=== PATIENT | male | born 1990 | race Asian ===

== ENCOUNTER → 2016-09-04 | Outpatient (CLI) | payer BC ==
[2016-09-04 13:18] LABS: ADD SCAN DIFF NO
[2016-09-04 13:23] LABS: BASOPHILS % 0.7 % (0.0-2.0); EOSINOPHILS # 0.1 10^3/ul (0.0-0.5); EOSINOPHILS % 2.3 % (0.0-7.0); HEMATOCRIT 42.9 % (42.0-52.0); HEMOGLOBIN 15.2 g/dl (14.0-18.0); LYMPHOCYTES # 1.7 10^3/ul (0.8-2.9); LYMPHOCYTES % 38.6 % (15.0-51.0); MEAN CORPUSCULAR HEMOGLOBIN 30.5 pg (29.0-33.0); MEAN CORPUSCULAR HGB CONC 35.4 g/dl (32.0-37.0); MEAN PLATELET VOLUME 11.8 fl (7.4-10.4); MONOCYTE # 0.3 10^3/ul (0.3-0.9); MONOCYTES % 7.9 % (0.0-11.0); NEUTROPHIL # 2.2 10^3/ul (1.6-7.5); NEUTROPHILS % 50.3 % (39.0-77.0); PLATELET COUNT 196 10^3/UL (140-415); RED BLOOD COUNT 4.99 10^6/ul (4.70-6.10); RED CELL DISTRIBUTION WIDTH 11.9 % (11.5-14.5); WHITE BLOOD COUNT 4.3 10^3/ul (4.8-10.8)
[2016-09-04 13:42] LABS: ADD UMIC YES; UR ASCORBIC ACID NEGATIVE (NEGATIVE); UR BILIRUBIN (Dip) 1+ mg/dL (NEGATIVE); UR BLOOD (Dip) NEGATIVE (NEGATIVE); UR CLARITY CLEAR (CLEAR); UR COLOR AMBER (YELLOW); UR GLUCOSE (Dip) NEGATIVE (NEGATIVE); UR KETONES (Dip) NEGATIVE (NEGATIVE); UR LEUKOCYTE ESTERASE (Dip) NEGATIVE Leu/ul (NEGATIVE); UR MUCUS MODERATE /HPF (NONE SEEN); UR NITRITE (Dip) NEGATIVE (NEGATIVE); UR RBC 0 /HPF (0-5); UR SPECIFIC GRAVITY (Dip) 1.027 (1.003-1.030); UR TOTAL PROTEIN (Dip) 1+ mg/dl (NEGATIVE); UR UROBILINOGEN (Dip) 2+ mg/dL (NEGATIVE)
[2016-09-04 13:46] LABS: ALBUMIN 4.8 g/dl (3.3-4.9); ALBUMIN/GLOBULIN RATIO 1.2; BILIRUBIN,INDIRECT 2.3 mg/dl (0-1.1); BILIRUBIN,TOTAL 2.3 mg/dl (0.2-1.3); CALCIUM 9.8 mg/dl (8.4-10.2); CHOL/HDL RATIO 2.6 RATIO; CREATININE 0.91 mg/dl (0.61-1.24); POTASSIUM 4.7 mmol/L (3.5-5.1); TOTAL PROTEIN 8.8 g/dl (6.1-8.1)
[2016-09-04 14:17] LABS: THYROID STIMULATING HORMONE 0.559 MIU/L (0.465-4.680)
[2016-09-04 18:55] LABS: HEPATITIS B CORE ANTIBODY NEGATIVE (NEGATIVE)
== END | disposition home or self-care (01) ==
LOC: LAB 12:57
PROVIDERS: ATTEND Internal Medicine
DX: M79.89 Other specified soft tissue disorders (principal)
CPT/HCPCS: 80053; 80061; 81001; 84443; 85025; 86704; 86803; 87340

== ENCOUNTER → 2016-11-28 | Outpatient (CLI) | payer BC ==
[2016-11-28 11:40] LABS: BASOPHIL # 0.1 10^3/ul (0.0-0.1); EOSINOPHILS # 0.2 10^3/ul (0.0-0.5); EOSINOPHILS % 4.3 % (0.0-7.0); HEMATOCRIT 43.3 % (42.0-52.0); LYMPHOCYTES # 1.6 10^3/ul (0.8-2.9); LYMPHOCYTES % 30.9 % (15.0-51.0); MEAN CORPUSCULAR HEMOGLOBIN 29.8 pg (29.0-33.0); MEAN CORPUSCULAR HGB CONC 34.6 g/dl (32.0-37.0); MEAN CORPUSCULAR VOLUME 86.1 fl (82.0-101.0); MEAN PLATELET VOLUME 10.1 fl (7.4-10.4); MONOCYTE # 0.3 10^3/ul (0.3-0.9); MONOCYTES % 6.3 % (0.0-11.0); NEUTROPHIL # 2.9 10^3/ul (1.6-7.5); NEUTROPHILS % 57.3 % (39.0-77.0); PLATELET COUNT 143 10^3/UL (140-415); RED BLOOD COUNT 5.03 10^6/ul (4.70-6.10); RED CELL DISTRIBUTION WIDTH 11.8 % (11.5-14.5); WHITE BLOOD COUNT 5.1 10^3/ul (4.8-10.8)
[2016-11-28 12:04] LABS: ALBUMIN 4.9 g/dl (3.3-4.9); ALBUMIN/GLOBULIN RATIO 1.28; BILIRUBIN,INDIRECT 1.3 mg/dl (0-1.1); BILIRUBIN,TOTAL 1.3 mg/dl (0.2-1.3); CALCIUM 9.5 mg/dl (8.4-10.2); CREATININE 0.84 mg/dl (0.61-1.24); POTASSIUM 4.3 mmol/L (3.5-5.1); TOTAL PROTEIN 8.7 g/dl (6.1-8.1)
--- NOTE | 2016-11-28 13:05 | RADRPT ---
PROCEDURE: US Abdomen and retroperitoneal complete. CLINICAL INDICATION: Elevated LFTs TECHNIQUE: Multiple real-time images were acquired of the patient's abdomen and retroperitoneum ut ilizing a high resolution transducer. COMPARISON: None FINDINGS: The liver demonstrates normal echogenicity. The liver is normal in size and no focal solid lesions are seen. The portal vein is patent with normal direction of flow. No intrahepatic biliary dilatat ion is seen. The liver measures 15.3 cm in length. Multiple gallstones are identified within the gallbladder. There is no pericholecystic fluid or gal lbladder wall thickening. The common bile duct measures 5.4 mm in maximal dimension. The visualized portions of the pancreas are unremarkable. The tail of the pancreas is not seen. The spleen is slightly enlarged in size. The spleen measures 13.4 cm in length. No free fluid is identified. The kidneys are normal in size, and demonstrate normal cortical echogenicity and cortical thickness. The right kidney measures 11 cm. The left kidney measures 10.9 cm. There is no evidence of hydro nephrosis. There are no kidney stones. The proximal aorta measures 1.4 cm in transverse dimension. RPTAT: AA IMPRESSION: Cholelithiasis. Borderline splenomegaly. .Tien Nicole MD, MD Date Time Electronically viewed and signed by .Tien Nicole MD, on 11/28/2016 13:05 .S/
--- NOTE | 2016-11-28 13:06 | RADRPT ---
PROCEDURE: XR Chest. CLINICAL INDICATION: chest pain , cough TECHNIQUE: PA and lateral views of the chest were obtained COMPARISON: None FINDINGS: The heart and mediastinum are within normal limits. The lungs are clear. There is no pleural effusion or pneumothorax. There is dextroscoliosis of the thoracic spine. RPTAT: AA IMPRESSION: No acute disease. .Tien Nicole MD, MD Date Time Electronically viewed and signed by .Tien Nicole MD, on 11/28/2016 13:06 .S/
== END | disposition home or self-care (01) ==
LOC: LAB 11:13
PROVIDERS: ATTEND Internal Medicine
DX: R05 Cough (principal); R79.89 Other specified abnormal findings of blood chemistry
CPT/HCPCS: 71020; 76700; 80053; 85025

== ENCOUNTER → 2017-11-24 | Outpatient (CLI) | END | disposition home or self-care (01) ==

== ENCOUNTER 2018-01-19 18:51 | Emergency (ER) | END 2018-01-19 21:52 | disposition home or self-care (01) ==

== ENCOUNTER 2018-10-03 11:47 | Inpatient (IN) | payer BC ==
[~2018-10-03] VITALS: Ht 167.6 cm; Wt 63.0 kg
[~2018-10-03 11:47] MED LIST: NAPR-985 PO
[2018-10-03] MEDS ORDERED: LIDOCAINE/MYLANTA 40 ML BTL PO ONE (12:30)
[2018-10-03] MEDS ORDERED: DICYCLOMINE 10 MG CAP PO ONE (12:30)
[2018-10-03] MEDS ORDERED: SOD CHLORIDE 0.9% 1,000 ML IV ONE ×2 (13:30→15:30)
[2018-10-03] MEDS ORDERED: morphine 4 MG/ML VIAL IV STA (15:08)
[2018-10-03] MEDS ORDERED: ONDANSETRON 4 MG INJ IV STA (15:21)
[2018-10-03] MEDS ORDERED: PIPER-TAZO 3.375 GM IV (PMX) 100 ML IVPB ONE (15:30)
[2018-10-03] MEDS ORDERED: ACETAMINOPHEN 325 MG TAB PO PRN (16:30)
[2018-10-03] MEDS ORDERED: ONDANSETRON 4 MG INJ IV PRN ×2 (16:30→19:00)
[2018-10-03 18:35] VITALS: BP 117/59; PULSE 77; RESP 18
[2018-10-03] MEDS ORDERED: ACETAMINOPHEN 650 MG SUPP PR PRN (19:00)
[2018-10-03] MEDS: morphine 2 MG INJ IV PRN (19:09)
[2018-10-03] MEDS: D5W-0.45 NACL + KCL 20 MEQ 1,000 ML IV SCH (19:09)
[2018-10-03 19:54] VITALS: BP 108/52; PULSE 81; RESP 18
[2018-10-03] MEDS: PIPER-TAZO 3.375 GM IV (PMX) 100 ML IVPB SCH (20:30)
[2018-10-03 20:39] VITALS: Ht 167.6 cm; Wt 63.0 kg
[2018-10-04] VITALS (19 sets, daily range): BP systolic 97–137; BP diastolic 56–75; PULSE 56–85; RESP 12–20
[2018-10-04] MEDS: PIPER-TAZO 3.375 GM IV (PMX) 100 ML IVPB SCH ×4 (02:09→19:31)
[2018-10-04] MEDS: D5W-0.45 NACL + KCL 20 MEQ 1,000 ML IV SCH ×3 (05:00→15:00)
[2018-10-04] MEDS: morphine 2 MG INJ IV PRN ×5 (07:51→23:29)
[2018-10-04] MEDS ORDERED: BUPIVACAINE 0.25% (MPF) 30 ML INJ ONE (15:54)
[2018-10-04] MEDS ORDERED: LIDOCAINE 1%/EPI 30 ML INJ ONE (15:54)
[2018-10-04] MEDS ORDERED: MIDAZOLAM 1 MG/ML 2 ML INJ ONE (17:12)
[2018-10-04] MEDS ORDERED: FENTAnyl 50 MCG/ML VIAL ONE ×2 (17:12→19:29)
[2018-10-04] MEDS ORDERED: ONDANSETRON 4 MG INJ IV PRN ×2 (17:30→19:30)
[2018-10-04] MEDS ORDERED: ACETAMINOPHEN 325 MG TAB PO PRN (17:30)
[2018-10-04] MEDS ORDERED: PIPER-TAZO 3.375 GM IV (PMX) 100 ML IVPB SCH (18:00)
[2018-10-04] MEDS ORDERED: ROPIVACAINE 0.5 % 30 ML VIAL ONE (18:22)
[2018-10-04] MEDS ORDERED: PROPOFOL 20 ML ONE (18:41)
[2018-10-04] MEDS ORDERED: ROCURONIUM 50 MG INJ ONE (18:41)
[2018-10-04] MEDS ORDERED: NEOSTIGMINE 3 MG/3 ML SYRINGE ONE (18:41)
[2018-10-04] MEDS ORDERED: LIDOCAINE 2% (SDV) 5 ML INJ ONE (18:41)
[2018-10-04] MEDS ORDERED: GLYCOPYRROLATE 0.4 MG INJ ONE (18:41)
[2018-10-04] MEDS ORDERED: ONDANSETRON 4 MG INJ ONE (18:44)
[2018-10-04] MEDS ORDERED: SUGAMMADEX SODIUM 200 MG/2 ML VIAL IV ONE (19:01)
[2018-10-04] MEDS ORDERED: MEPERIDINE 100 MG INJ ONE (19:04)
[2018-10-04] MEDS ORDERED: MEPERIDINE 25 MG INJ IV PRN (19:30)
[2018-10-04] MEDS ORDERED: HYDROmorphONE 1 MG/5 ML IV SYRINGE IV PRN ×2 (19:30)
[2018-10-04] MEDS ORDERED: DIPHENHYDRAMINE 50 MG INJ IV PRN (19:30)
[2018-10-04] MEDS ORDERED: KETOROLAC 30 MG INJ IV PRN (19:30)
[2018-10-04] MEDS ORDERED: METOCLOPRAMIDE 10 MG INJ IV PRN (19:30)
[2018-10-04] MEDS: FENTAnyl 50 MCG/ML VIAL IV PRN ×3 (19:40→20:02)
[2018-10-04] MEDS: D5-NS + KCL 20 MEQ 1,000 ML IV SCH (21:37)
[2018-10-05 01:00] VITALS: BP 129/62; PULSE 78; RESP 18
[2018-10-05] MEDS: PIPER-TAZO 3.375 GM IV (PMX) 100 ML IVPB SCH ×4 (02:15→20:43)
[2018-10-05] MEDS: morphine 2 MG INJ IV PRN ×3 (02:20→07:08)
[2018-10-05] MEDS: D5-NS + KCL 20 MEQ 1,000 ML IV SCH ×3 (03:10→23:10)
[2018-10-05 04:15] VITALS: BP 118/57; PULSE 94; RESP 18
[2018-10-05] MEDS ORDERED: ENOXAPARIN 40 MG/0.4 ML SYG SC SCH (07:00)
[2018-10-05 07:57] VITALS: BP 113/54; PULSE 77; RESP 18
[2018-10-05] MEDS: HYDROCODONE/APAP (5/325) TAB PO PRN ×3 (09:07→22:25)
[2018-10-05] MEDS ORDERED: POLYETHYLENE GLYCOL 17 GM PACKET PO PRN (12:30)
[2018-10-05] MEDS: DOCUSATE SODIUM 100 MG CAP PO SCH ×2 (12:40→20:43)
[2018-10-05] MEDS: IBUPROFEN 600 MG TAB PO PRN (12:40)
[2018-10-05 14:45] VITALS: BP 109/52; PULSE 67; RESP 20
[2018-10-05 16:14] VITALS: BP 122/62; PULSE 64; RESP 20
[2018-10-05 19:50] VITALS: BP 109/58; PULSE 75; RESP 18
[2018-10-06 02:14] VITALS: BP 122/59; PULSE 75; RESP 18
[2018-10-06] MEDS: PIPER-TAZO 3.375 GM IV (PMX) 100 ML IVPB SCH ×3 (02:23→14:00)
[2018-10-06] MEDS: HYDROCODONE/APAP (5/325) TAB PO PRN ×2 (04:34→19:51)
[2018-10-06] MEDS ORDERED: LIDOCAINE 1% (MDV) 20 ML INJ SC ONE ×2 (07:30→18:00)
[2018-10-06 08:03] VITALS: BP 126/59; PULSE 64; RESP 18
[2018-10-06] MEDS: DOCUSATE SODIUM 100 MG CAP PO SCH (08:30)
[2018-10-06] MEDS: IBUPROFEN 600 MG TAB PO PRN (08:36)
[2018-10-06] MEDS: D5-NS + KCL 20 MEQ 1,000 ML IV SCH ×2 (09:10→18:17)
[2018-10-06 15:14] VITALS: BP 118/63; PULSE 85; RESP 17
[2018-10-06] MEDS ORDERED: LIDOCAINE 1% (MDV) 20 ML INJ ONE (17:55)
== END 2018-10-06 20:18 | disposition home or self-care (01) | DRG 419 ==
LOC: FTE 11:47 → MS1 16:03
PROVIDERS: ADMIT Internal Medicine; ATTEND Internal Medicine
PROC: 0FT44ZZ Resection of Gallbladder, Percutaneous Endoscopic Approach (ICD-10-PCS; principal; 2018-10-04 17:00)
DX: K80.00 Calculus of gallbladder with acute cholecystitis without obstruction (principal)
CPT/HCPCS: 36415; 74181; 76705; 78226; 80053; 81001; 83690; 85014; 85018; 85025; 85610; 85730; 88304; 96374; 96375; A9537; J1650; J2175; J2250; J2270; J2405; J2543; J2710; J2795; J3010; J3480; J7030